=== PATIENT | male | born 1960 | race Caucasian/White ===

== ENCOUNTER 2020-06-16 09:00 | Outpatient (REF) | payer OTHER, SELFPAY ==
[2020-06-16 11:38] LABS: Hemoglobin 14.1 g/dl (14.0-18.0); Mean Corpuscular HGB Conc 33.6 g/dl (31.0-36.0); Mean Corpuscular Hemoglobin 30.8 pg (27.0-33.0); Mean Corpuscular Volume 91.7 fL (80-98); Mean Platelet Volume 10.6 fL (9.4-12.4); Platelet Count 258 X10*3/uL (160-400); Red Blood Count 4.58 X10*6/uL (4.60-5.80); Red Cell Distribution Width 13.2 % (11.0-16.0); White Blood Count 4.9 X10*3/uL (4.8-10.8)
[2020-06-16 11:50] LABS: Alanine Aminotransferase 24 U/L (0-40); Albumin Level 4.3 g/dL (3.5-5.0); Alkaline Phosphatase 52 U/L (39-117); Anion Gap 11 (12-20); Aspartate Amino Transferase 20 U/L (5-37); Bilirubin Total 0.8 mg/dL (0.0-1.0); Blood Urea Nitrogen 18 mg/dL (9-16); Calcium 8.9 mg/dL (8.4-10.2); Carbon Dioxide 28 mmol/L (22-29); Chloride 102 mmol/L (96-108); Cholesterol 197 mg/dL; Estimated Glomerular Filt Rate > 60; Glucose Fasting 93 mg/dL (60-99); HDL Cholesterol 32 mg/dL; LDL Cholesterol Calculated 146 mg/dl; Potassium 4.2 mmol/L (3.3-5.1); Sodium 137 mmol/L (135-145); Total Protein 7.2 g/dL (6.5-8.0); Triglycerides 97 mg/dL
== END 2020-06-16 09:01 | disposition home or self-care (01) ==
LOC: HO.MANLDS 09:00
PROVIDERS: PCP Internal Medicine; Visit Provider Physician Assistant
DX: Z00.00 Encounter for general adult medical examination without abnormal findings (principal)
CPT/HCPCS: 36415; 80053; 80061; 85027

== ENCOUNTER 2022-11-28 08:39 | Outpatient (REF) | payer OTHER, SELFPAY ==
[2022-11-28 12:56] LABS: MANUAL DIFF FLAG NO
[2022-11-28 13:06] LABS: Basophils Percent Auto 0.6 % (0-2); Eosinophils Absolute Auto 0.1 X10*3/uL (0.0-0.4); Eosinophils Percent Auto 1.5 % (0-4); Hematocrit 41.8 % (42.0-52.0); Hemoglobin 14.3 g/dl (14.0-18.0); Lymphocytes Absolute Auto 1.7 X10*3/uL (1.2-4.9); Lymphocytes Percent Auto 35.9 % (20-40); Mean Corpuscular HGB Conc 34.2 g/dl (31.0-36.0); Mean Corpuscular Hemoglobin 31.1 pg (27.0-33.0); Mean Corpuscular Volume 90.9 fL (80.0-98.0); Mean Platelet Volume 10.3 fL (9.4-12.4); Monocytes Absolute Auto 0.6 X10*3/uL (0.1-1.2); Monocytes Percent Auto 11.6 % (2-11); Neutrophils Absolute Auto 2.4 x10*3/uL (2.0-8.3); Neutrophils Percent Auto 50.4 % (45-73); Platelet Count 307 X10*3/uL (160-400); Red Cell Distribution Width 13.3 % (11.0-16.0); White Blood Count 4.7 X10*3/uL (4.8-10.8)
[2022-11-28 13:21] LABS: Estimated Average Glucose 117 mg/dL; Hemoglobin A1c % 5.7 % (<6.0)
[2022-11-28 13:46] LABS: Alanine Aminotransferase 40 U/L (0-40); Albumin Level 4.1 g/dL (3.5-5.0); Alkaline Phosphatase 49 U/L (39-117); Anion Gap 13 (12-20); Aspartate Amino Transferase 28 U/L (5-37); Bilirubin Total 0.4 mg/dL (0.0-1.0); Blood Urea Nitrogen 19 mg/dL (9-16); Calcium 8.9 mg/dL (8.4-10.2); Carbon Dioxide 26 mmol/L (22-29); Chloride 103 mmol/L (96-108); Cholesterol 182 mg/dL (<200); Estimated Glomerular Filt Rate > 60; Glucose Random 88 mg/dL (60-115); HDL Cholesterol 31 mg/dL (>40); LDL Cholesterol Calculated 115 mg/dL (<100); Sodium 138 mmol/L (135-145); Total Protein 7.7 g/dL (6.5-8.0); Triglycerides 183 mg/dL (<150)
== END 2022-11-28 08:40 | disposition home or self-care (01) ==
LOC: HO.MANLDS 08:39
PROVIDERS: Visit Provider Internal Medicine
DX: E78.00 Pure hypercholesterolemia, unspecified (principal); R73.01 Impaired fasting glucose
CPT/HCPCS: 36415; 80053; 80061; 83036; 85025

== ENCOUNTER 2024-07-30 11:17 | Outpatient (REF) | payer OTHER, SELFPAY ==
[2024-07-30 13:10] LABS: MANUAL DIFF FLAG NO
--- OUTSIDE RECORDS SUMMARY | 2024-07-30 13:17 | XMS_ITS | Data Portability ---
Author Organization [facility] Address [address] [place] [address] Assessment Encounter Date Assessment Date Assessment LastModified by Organization Details LastModified Time 12/11/2020 12/11/2020 [id number] [place] [id number] (COMMUNITY [employer] WORK[employer]) : MDM LOW MUST MEET 2 OF 3 ELEMENTS: PROBLEMS, DATA OR RISK ELEMENT 1: PROBLEMS ADDRESSED (LOW): 2 OR MORE SELF-LIMITED OR MINOR PROBLEMS OR 1 STABLE CHRONIC ILLNESS OR 1 ACUTE UNCOMPLICATED ILLNESS OR INJURY ELEMENT 2: DATA TO BE REVISED AND ANALYZED (LOW) MUST MEET 1 OF 2 CATEGORIES: CATEGORY 1. REVIEW OF PRIOR EXTERNAL NOTES/RESULTS, ORDERING OF TEST(S) CATEGORY 2. ASSESSMENT REQUIRING INDEPENDENT HISTORIAN(S) INCLUDE WHO THE HISTORIAN IS AND RELATION TO PT AND WHY PT IS UNABLE TO GIVE COMPLETE HISTORY ELEMENT 3: RISK (LOW) RISK OF COMPLICATIONS AND/OR MORBIDITY OR MORTALITY OF PATIENT MANAGEMENT PROVIDER MUST THOROUGHLY DOCUMENT ALL OF THE ELEMENTS COVERED Not available 12/11/2020 11:35:21 01/01/2021 01/01/2021 [id number] [place] [id number] (COMMUNITY [employer] HE[employer] WORKER) MDM MODERATE MUST MEET 2 OUT OF 3 ELEMENTS: PROBLEMS, DATA OR RISK ELEMENT 1: PROBLEMS ADDRESSED 1 OR MORE CHRONIC ILLNESS WITH EXACERBATION OR 2 OR MORE STABLE CHRONIC ILLNESSES OR 1 UNDIAGNOSED NEW PROBLEM OR 1 ACUTE ILLNESS W/SYMPTOMS OR 1 ACUTE COMPLICATED INJURY ELEMENT 2: DATA MUST MEET 1 OF 3 CATEGORIES CATEGORY 1: REVIEW OF PRIOR EXTERNAL NOTES, REVIEW OF RESULTS, ORDERING OF EACH TEST, ASSESSMENT REQUIRING INDEPENDENT HISTORIAN OR CATEGORY 2: INDEPENDENT INTERPRETATION OF TESTS BY ANOTHER PHYSICIAN OR SPECIALIST OR CATEGORY 3: DISCUSSION OF MGT OR TEST INTERPRETATION W/EXTERNAL PHYSICIAN OR SPECIALIST ELEMENT 3: RISK RISK OF COMPLICATIONS AND/OR MORBIDITY OR MORTALITY OF PATIENT MANAGEMENT PROVIDER MUST THOROUGHLY DOCUMENT EACH ELEMENT THAT IS COVERED Not available 01/01/2021 15:37:05 Plan of Treatment Reminders Order Date Submit Date Provider Last Modified By Organization Details Last Modified Time Details Appointments ANNUAL EXAM 2024 02:30P M DR YI Not available Not available Not available Lab HbA1c (hemoglob in A1c), blood 2022 023 [facility], [address] [place] [address], [id number], 10/25/2022 12:30:37 lipid panel, blood 2022 023 [facility], [address] [place] [address], [id number], 10/25/2022 12:30:36 CMP, serum or plasma 2022 023 [facility], [address] [place] [address], [id number], 10/25/2022 12:30:37 CBC w/ auto diff 2022 023 [facility], [address] [place] [address], [id number], 10/25/2022 12:30:36 HbA1c (hemoglob in A1c), blood 2020 021 [email or web address] 10 [facility], [address] [place] [address], [id number], 01/08/2021 08:42:26 CMP, serum or plasma 2020 021 [facility], [address] [place] [address], [id number], 01/01/2021 15:40:27 PSA, serum or plasma 2020 021 [facility], [address] [place] [address], [id number], 01/01/2021 15:40:27 Referral None recorded. Procedures None recorded. Surgeries None recorded. Imaging XR, nasal bones, 3 or more view 2023 024 [facility], [address] [place], [address], 10/10/2023 17:07:18 XR, chest, 2 view 2022 023 [email or web address] Not available 01/25/2023 08:16:56 CT, heart, w/o contrast, w/ coronary calcium score 2022 023 [email or web address] [facility], [address] [place], [address], 11/15/2022 08:10:04 Medication Orders diclofena c sodium 75 mg tablet,de layed release 2023 024 [facility] #[id number], [address], [place], [phone], 10/10/2023 11:20:18 albuterol sulfate HFA 90 mcg/actua tion aerosol inhaler 2022 024 [facility] #[id number], [address], [place], [phone], 10/10/2023 11:02:19 benzonata te 200 mg capsule 2022 024 [facility] #[id number], [address], [place], [phone], 10/10/2023 11:02:10 Benicar HCT 20 mg-12.5 mg tablet 2020 021 RUPAL Not available 01/01/2021 15:40:35 triamtere ne 37.5 mg-hydroc hlorothia zide 25 mg tablet 2020 021 [email or web address] Not available 10/25/2022 11:53:07 Patient TargetsNo targets recorded. Patient Instructions Encounter Date Encounter Id Patient Instructions Last Modified By Organization Details Last Modified Time 12/11/2020 [id number] prediabetes: car e instructions Not available 12/11/2020 11:34:40 high blood pressure: care instructions Not available 12/11/2020 11:34:41 learning about high blood pressure Not available 12/11/2020 11:34:40 10/25/2022 [id number] high blood pressure: care instructions Not available 10/25/2022 12:24:56 learning about high blood pressure Not available 10/25/2022 12:24:56 Reason for Referral None Reported. Results Created Date Observation Date Name Description Value Unit Range Abnormal Flag Note LastModifiedBy Organization Detail LastModifiedTime 09/11/1909/10/2022 XR, chest , 2 view No observ ation record ed. [facility] [address] [facility] [address], [place], [address], 09/12/2022 11:06:28 11/16/19 23 11/15/2022 CT, heart , w/o contr ast, w/ coron michelle calci um score No observ ation record ed. [facility] [address] [place], [address], 11/17/2022 21:58:46 11/22/19 23 11/21/2022 XR, chest , 2 view No observ ation record ed. [email or web address] [facility] [address] [place] [address] , [place], [address], 11/22/2022 10:11:50 01/03/20 23 01/02/2023 XR, chest , 2 view No observ ation record ed. [address], [address], 01/03/2023 08:28:41 10/10/19 24 10/10/2023 XR, nasal bones , 3 or more view No observ ation record ed. [address], [address], 10/11/2023 09:53:29 Result Notes None recorded. Problems Name Problem SNOMED Code Status Onset Date Resolution Date Notes Provider Name and Address Organization Details Recorded Time Family history of stroke 629232993 Active 2017 Not Available [facility] 2 21:18:27 Essential hypertensi on 02641677 Active 2017 Not Available [facility] 2 21:18:27 Hiatal hernia 08624248 Active 2017 Not Available [facility] 3 17:03:48 Hyperchole sterolemia 25518227 Active 2017 Not Available [facility] 2 21:18:27 Impaired fasting glycemia 015227497 Active 2017 Not Available [facility] 3 17:03:48 Diverticul ar disease 595543503 Active 2017 Not Available [facility] 3 17:03:48 Insomnia 756703702 Active 2022 Not Available [facility] 3 17:03:47 Aspiration pneumonia 710278230 Active 2022 Not Available [facility] 3 17:03:48 Gastro-eso phageal reflux disease with esophagiti s 748197553 Active 2022 Not Available [facility] 3 17:03:48 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 Not Available [facility] 3 17:03:48 Cough 01843598 Active 2022 BONNIE MULLIGAN [address] [place] [address], [address], [facility] 3 11:42:15 Pneumonia 942367685 Active 2022 BONNIE MULLIGAN [address] [place] [address], [address], [facility] 3 08:31:36 Diverticul itis of sigmoid colon 425318653 Active 2022 Doni Yi DO [address] [place], [address], [facility] 3 10:02:14 Pain of nose 310023257 Active 2023 BONNIE MULLIGAN [address] [place], [address], [facility] 4 11:14:21 Rhinitis 56318429 Active 2023 BONNIE MULLIGAN [address] [place] [address], [address], [facility] 4 11:15:40 Notes:Some problems listed i n Document: #[id number] could not be added to this patient's chart. Please review this document and add these problems to the patient's chart manually as needed. Problem Notes None recorded. Procedures Surgical History Date Name Laterality Status Provider Name and Address Organization Details Recorded Time Colonoscopy completed Doni Yi DO [address] [place] [address], [phone], [facility] 03/30/2021 14:24:55 Imaging Results Imaging Date Name Status [facility]Modified by [facility] Details LastModified Time 09/10/2022 XR, chest, 2 view completed [address], [place], [address], 09/12/2022 11:06:28 11/15/2022 CT, heart, w/o contrast, w/ coronary calcium score completed [facility] [address] [place], [address], 11/17/2022 21:58:46 11/21/2022 XR, chest, 2 view completed [email or web address] [place] [address] - Outpatient Radiology [address] [place] [address] [place], [address], 11/22/2022 10:11:50 01/02/2023 XR, chest, 2 view completed [facility] [address] [place], [address], 01/03/2023 08:28:41 10/10/2023 XR, nasal bones, 3 or more view completed [email or web address] [facility] [address] [facility], [place], [address], 10/11/2023 09:53:29 Procedure Notes None recorded. Medical Equipment None Reported. Allergies No known drug allergies Medications Name Sig Start Date Stop Date Status Note LastModified by Organization Details LastModified Time amoxicillin 500 mg capsule TAKE 1 CAPSULE BY MOUTH THREE TIMES DAILY 10/09 completed Not Available Not Available Not Available doxycycline hyclate 100 mg capsule Take 1 capsule twice a day by oral route for 5 days. 10/09 completed Not Available Not Available Not Available benzonatate 200 mg capsule TAKE 1 CAPSULE BY MOUTH THREE TIMES DAILY FOR 14 DAYS NEEDED 10/09 completed Not Available Not Available Not Available metoprolol succinate ER 50 mg tablet,exte nded release 24 hr active Not Available Not Available Not Available hydrocodone 5 mg-acetamin ophen 325 mg tablet TAKE 1 TABLET BY MOUTH EVERY 6 HOURS NEEDED FOR PAIN 10/09 completed Not Available Not Available Not Available metoprolol succinate ER 200 mg tablet,exte nded release 24 hr TAKE 1 TABLET BY MOUTH EVERY DAY 01/11 completed Not Available Not Available Not Available famotidine 40 mg tablet TAKE 2 TABLETS BY MOUTH DAILY AT BEDTIME active Not Available Not Available No t Available metoprolol succinate ER 100 mg tablet,exte nded release 24 hr TAKE 1 TABLET BY MOUTH EVERY DAY. TAKE CONSISTEN TLY WITH MEALS OR ON AN EMPTY STOMCH 2021 active Not Available Not Available Not Avai lable alclometaso ne 0.05 % topical cream Apply 1 applicati on 3 times a week by topical route for 15 days. 10/09 completed Not Available Not Available Not Available Zyrtec 10 mg tablet Take 1 tablet every day by oral route. active Not Available Not Available No t Available metronidazo le 500 mg tablet 08/22 completed Not Available Not Available Not Available amlodipine 5 mg tablet take 1 tablet by mouth once daily 09/08 completed Not Available Not Available Not Available ciprofloxac in 500 mg tablet 08/22 completed Not Available Not Available Not Available triamcinolo ne acetonide 0.1 % topical cream APPLY TWICE DAILY TO THE AFFECTED AREA TO RASH ON LEGS FOR 2 WEEKS ON THEN 1 WEEK OFF NEEDED active Not Available Not Available No t Available ondansetron 8 mg disintegrat ing tablet PLACE 1 TABLET ON THE TOUNGE TWICE DAILY 10/09 completed Not Available Not Available Not Available desonide 0.05 % topical ointment APPLY TOPICALLY TO FACE DAILY NEEDED active Not Available Not Available No t Available imiquimod 5 % topical cream packet active Not Available Not Available Not Available meclizine 25 mg tablet TAKE 1 TABLET BY MOUTH THREE TIMES DAILY NEEDED active Not Available Not Available No t Available pantoprazol e 40 mg tablet,edwardo yed release TAKE 1 TABLET BY MOUTH TWICE DAILY 30 TO 60 MINUTES BEFORE FOOD active Not Available Not Available No t Available triamterene 37.5 mg-hydrochl orothiazide 25 mg tablet TAKE 1 TABLET BY MOUTH EVERY DAY 10/25 completed Not Available Not Available Not Available omeprazole 20 mg capsule,del ayed release TAKE 1 CAPSULE BY MOUTH TWICE A DAY. 09/12 completed Not Available Not Available Not Available diclofenac sodium 75 mg tablet,edwardo yed release TAKE 1 TABLET BY MOUTH TWICE DAILY FOR 14 DAYS NEEDED active Not Available Not Available No t Available codeine 10 mg-guaifene sin 100 mg/5 mL oral liquid TAKE 10 ML BY MOUTH EVERY 4 HOURS NEEDED 01/11 completed Not Available Not Available Not Available halobetasol propionate 0.05 % topical cream APPLY A THIN LAYER TO THE AFFECTED AREA(S) BY TOPICAL ROUTE ONCE DAILY DO NOT EXCEED 50 GRAMS PER WEEK OR 2 WEEKS DURATION 10/09 completed Not Available Not Available Not Available zolpidem 5 mg tablet take 1 tablet by mouth at bedtime if needed 07/29 completed Not Available Not Available Not Available metoprolol succinate ER 25 mg tablet,exte nded release 24 hr 08/22 completed Not Available Not Available Not Available alclometaso ne 0.05 % topical ointment APPLY SMALL AMOUNT TO EYELIDS DAILY FOR 1 TO 2 WEEKS ON THEN 1 TO 2 WEEKS OFF NEEDED active Not Available Not Available No t Available levofloxaci n 750 mg tablet TAKE 1 TABLET BY MOUTH EVERY DAY FOR 10 DAYS 10/09 completed Not Available Not Available Not Available zolpidem 10 mg tablet TAKE 1 TABLET BY MOUTH EVERY DAY active Not Available Not Available No t Available methylpredn isolone 4 mg tablets in a dose pack FOLLOW PACKAGE DIRECTION S 01/11 completed Not Available Not Available Not Available albuterol sulfate HFA 90 mcg/actuati on aerosol inhaler INHALE 2 PUFFS BY MOUTH EVERY 4 HOURS 10/09 completed Not Available Not Available Not Available SSD 1 % topical cream APPLY A 1/16 INCH (1.5 MM) THICK LAYER TO affected AREA BY TOPICALRO [place] 2 TIMES PER DAY 10/09 completed Not Available Not Available Not Available ketoconazol e 2 % topical cream APPLY TOPICALLY TO THE AFFECTED AREA TWICE DAILY FOR SCALE ON FACE active Not Available Not Available No t Available doxycycline hyclate 100 mg tablet 08/22 completed Not Available Not Available Not Available naproxen 500 mg tablet TAKE 1 TABLET BY MOUTH TWICE DAILY WITH FOOD 10/09 completed Not Available Not Available Not Available doxazosin 2 mg tablet 1 qd active Not Available Not Available No t Available amoxicillin 875 mg-potassiu m clavulanate 125 mg tablet TAKE 1 TABLET BY MOUTH EVERY 12 HOURS FOR 10 DAYS 10/09 completed Not Available Not Available Not Available oxycodone 5 mg tablet 10/09 completed Not Available Not Available Not Available olmesartan 20 mg-hydrochl orothiazide 12.5 mg tablet TAKE 1 TABLET BY MOUTH 1 TIME EACH DAY active Not Available Not Available No t Available olmesartan 40 mg-hydrochl orothiazide 25 mg tablet 08/22 completed Not Available Not Available Not Available sildenafil (pulmonary hypertensio n) 20 mg tablet Take 3 tablets by mouth one hour prior to sex as needed. 10/25 completed Not Available Not Available Not Available chlorhexidi ne gluconate 0.12 % mouthwash SWISH AND SPIT 10 ML BY MOUTH THREE TIMES DAILY 10/09 completed Not Available Not Available Not Available Aspir-81 Take one tablet once a day active Not Available Not Available No t Available Afluria [id number] (PF) 45 mcg(15 mcg x 3)/0.5 mL intramuscul ar syringe 08/22 completed Not Available Not Available Not Available Fluarix Quad (PF) 60 mcg (15 mcg x 4)/0.5 mL IM syringe 06/26 completed Not Available Not Available Not Available Flucelvax Quad (PF) 60 mcg (15 mcg x 4)/0.5 mL IM syringe 06/26 completed Not Available Not Available Not Available COVID-19 test specimen collection TEST DIRECTED 07/28 completed Not Available Not Available Not Available Fluarix Quad (PF) 60 mcg (15 mcg x 4)/0.5 mL IM syringe 06/26 completed Not Available Not Available Not Available Mounjaro 7.5 mg/0.5 mL subcutaneou s pen injector INJECT 7.5MG SUBCUTANE OUSLY WEEKLY THEN DIRECTED 10/09 completed Not Available Not Available Not Available Mounjaro 5 mg/0.5 mL subcutaneou s pen injector INJECT 5MG SUBCUTANE OUSLY WEEKLY 10/09 completed Not Available Not Available Not Available Mounjaro 15 mg/0.5 mL subcutaneou s pen injector ADMINISTE R 15 MG UNDER THE SKIN WEEKLY FOR 4 WEEKS DIRECTED active Not Available Not Available No t Available Mounjaro 10 mg/0.5 mL subcutaneou s pen injector ADMINISTE R 10 MG UNDER THE SKIN WEEKLY 10/09 completed Not Available Not Available Not Available Mounjaro 12.5 mg/0.5 mL subcutaneou s pen injector ADMINISTE R 12.5 MG UNDER THE SKIN WEEKLY active Not Available Not Available No t Available Mounjaro 2.5 mg/0.5 mL subcutaneou s pen injector 10/09 completed Not Available Not Available Not Available Vitals Date Recorded Body height Body mass index (BMI) Body weight Oxygen saturation Oxygen saturation in Arterial blood by Pulse oximetry Heart rate Systolic blood pressure Diastolic blood pressure Provider Name and Address Organization Details Last Updated DateTime 1 170.82 cm 33.2 kg/m2 20301.2 5 g 96 % 96 % 70 /min 200 mm[Hg] 120 mm[Hg] [facility] 1 11:06:36 Date Recorded Body height Body mass index (BMI) Body weight Heart rate Oxygen saturation Oxygen saturation in Arterial blood by Pulse oximetry Systolic blood pressure Diastolic blood pressure Provider Name and Address Organization Details Last Updated DateTime 3 170.18 cm 34.5 kg/m2 73401.3 2 g 60 /min 96 % 96 % 126 mm[Hg] 60 mm[Hg] Yudi Lee [facility] 3 11:54:32 Date Recorded Systolic blood pressure Diastolic blood pressure Provider Name and Address Organization Details Last Updated DateTime 10/25/2022 128 mm[Hg] 82 mm[Hg] Doni CobosLinda Yi, DO [address] [facility], [place], [address], [facility] 10/25/2022 12:19:23 Date Recorded Body height Body mass index (BMI) Body weight Heart rate Oxygen saturation Oxygen saturation in Arterial blood by Pulse oximetry Systolic blood pressure Diastolic blood pressure Provider Name and Address Organization Details Last Updated DateTime 3 170.18 cm 34 kg/m2 01008.8 3 g 66 /min 95 % 95 % 118 mm[Hg] 64 mm[Hg] Kathy Patito [facility] 3 09:39:30 Date Recorded Body height Body mass index (BMI) Body weight Heart rate Oxygen saturation Oxygen saturation in Arterial blood by Pulse oximetry Systolic blood pressure Diastolic blood pressure Provider Name and Address Organization Details Last Updated DateTime 4 168.91 cm 32.6 kg/m2 45826.4 4 g 88 /min 98 % 98 % 124 mm[Hg] 72 mm[Hg] Dmitry Urbinain [facility] 4 11:05:36 Social History Question Answer Notes LastModified by Organizat ion Details LastModified Time Tobacco Smoking Status Never Smoker Not Available [facility] 02/04/2020 03:36:24 What Was The Date Of Your Most Recent Tobacco Screening? 10/10/2023 [email or web address] Information not available 10/10/2023 Do You Or Have You Ever Used Any Other Forms Of Tobacco Or Nicotine? No [email or web address] Information not available 10/25/2022 Sex: Unknown Functional Status None recorded. Mental Status None recorded. Family History Nothing Reported. Medical History No medical history recorded. Immunizations Vaccine Type Date Status Note Provider Nam e and Address Organization Details Recorded Time COVID-19, mRNA, LNP-S, PF, 30 mcg/0.3 mL dose 1 completed Not Available [facility] 09/29/2021 21:18:28 COVID-19, mRNA, LNP-S, PF, 30 mcg/0.3 mL dose 1 completed Not Available [facility] 09/29/2021 21:18:28 Influenza, split virus, quadrivalent, preservative 8 completed Not Available [facility] 09/29/2021 21:18:28 Influenza, split virus, quadrivalent, preservative 9 completed Not Available [facility] 09/29/2021 21:18:28 Influenza, split virus, quadrivalent, preservative 0 completed Not Available [facility] 09/29/2021 21:18:28 Past Encounters Encounter ID Performer Location Encounter Start Date Encounter Closed Date Diagnosis/Indication Diagnosis SNOMED-CT Code Diagnosis ICD10 Code Diagnosis Note [id number] July JYOTI Shaw [facility] [address] [facility],[place] [address] 08/22/2017 10:08:34 08/22/2017 11:11:43 Edema of lower extremity 624812618 R60.0 will d/c amlodipine low sodium getting up and walking around to avoid stasis elevated legs if swollen vascular consult if swelling persists after amlodipine is d/c'd Impaired f asting glycemia 322763795 R73.01 Essential hypertension 28053330 I10 f/u in 1 month for BP recheck will have to add new med if BP is elevated Skin lesion 98630144 L98 .9 has plan to see derm in the near future. recommend having derm check out wound on left العلي especially if silvadene fails [id number] Doni Yi DO [facility] [address] [facility],[place] [address] 09/08/2017 13:23:03 09/08/2017 14:00:19 Diverticular disease 746139124 K57.90 stable no major issues Essential hypertension 77315899 I10 doing good overall stable off amlodipine edema is gone Edema of l ower extremity 128577741 R60.0 now stable off amlodipine no need for further tx except must stand and walk on long airline flights Eczema 77278447 L30.9 will tx with halobeta [id number] Doni Yi [facility] [address] [facility],[place] [address] 06/24/2019 15:17:41 06/24/2019 16:18:32 Adult health examination 101950553 Z00.01 Active or passive immunization 058236649 Z23 Rupture of rotator cuff of right shoulder 6916845505 8400183 M75.101 strong suspicion he has a full tear of the rotator [id number] BONNIE MULLIGAN [facility] [address] [facility],[place] [address] 05/01/2020 12:08:20 05/01/2020 15:08:35 Vertigo 603259514 R42 will start patient on meclizine and see if improvemen t of symptoms if no resolution and worsening will either call or go to the ER for treatment Nausea and vomiting 1693 2000 R11.2 will also start patient on zofran for vomiting [id number] Doni Yi [facility] [address] [facility],[place] [address] 05/04/2020 09:33:37 05/04/2020 14:11:32 Benign paroxysmal positional vertigo 031738042 H81.11 long detailed discussion re the manuveurs and he also is mya to follow up with ENT [id number] BONNIE MULLIGAN [facility] [address] [facility],[place] [address] 07/28/2020 11:23:15 07/28/2020 12:19:38 Active or passive immunization 519478359 Z23 advised [facility] th examination 434798152 Z00.00 the patient is doing well BP is great seeing specialist for his ears did flush his ears today due to impacted cerumen [id number] Doni Yi [facility] [address] [facility],[place] [address] 12/11/2020 10:56:17 12/11/2020 12:04:33 Essential hypertension 90040356 I10 bp is completely out of controlwe will add triam/hctz to regimen amlodipine in past did NOT help his bp Impaired f asting glycemia 438943963 R73.01 doing ok had lost 35lbs but gained back 25lbs [id number] Doni Yi DO [facility] [address] [facility],[place] [address] 01/01/2021 08:17:54 01/01/2021 15:51:06 Essential hypertension 99395671 I10 bp is still out of control and although better is still elevated we will stop the dyazide and re start the benicar hct Impaired f asting glycemia 236471964 R73.01 doing ok had lost 35lbs but gained back 25lbs as noted Hypercholesterolemia 136 17702 E78.00 will rechk in spring [id number] Doni Yi DO [facility] [address] [facility],[place] [address] 10/25/2022 11:48:34 10/25/2022 15:31:30 Active or passive immunization 860498569 Z23 Adult [facility] th examination 139906976 Z00.00 Gastro-eso phageal reflux disease with esophagitis 918642562 K21.00 followed by GI Hypercholesterolemia 136 05314 E78.00 will rechk in spring Essential hypertension [id number] I10 bp is still out of control and although better is still elevated we will stop the dyazide and re start the benicar hct Impaired f asting glycemia [id number] R73.01 gained some wgt back will chk a1c [id number] BONNIE MULLIGAN [facility] [address] [facility] [address],[place] [address] 01/11/2023 09:30:16 01/11/2023 11:37:16 Pneumonia [id number] J18.8 will recheck [id number] BONNIE MULLIGAN [facility] [address] [facility] [address],[place] [address] 10/10/2023 10:52:43 10/10/2023 13:36:25 Depression screening [id number] Z13.31 negative Pain of nose [id number] J 34.89 will set up with XRstart anti-infla mmatory Rhinitis [id number] J00 does have several environmen lesa allergies Health Concerns Section Related Observation LastModified by Organization Detai ls LastModified Time None Recorded Concern Status LastModified by Organization Details LastModified Time None Recorded Advance Directives Directive None Recorded Payers Encounter Date Sequence Insurance Name Policy Number Policy Burgess Covered Member ID Burgess Member ID Guarantor Name 12/11/2020 1 [id number] Artie Stinson [id number] Artie Stinson 01/01/2021 1 UMR [id number] Artie Stinson [id number] Artie Stinson 10/25/2022 1 UMR [id number] Artie Stinson [id number] Artie Stinson 01/11/2023 1 UMR [id number] Artie Stisnon [id number] Artie Stinson 10/10/2023 1 UMR [id number] Artie Stinson [id number] Artie Stinson Notes Date Note Type Note Provider Name a nd Address Organization Details Recorded Time 1 text/html Hypertension F/UReported bypatient.Medications :taking medications as directed; no side effects from medication Lifestyle:regular exercise; limiting/avoiding salt; compliant with low salt diet Associated Symptoms:no dizziness; no chest pain; no shortness of breath; no palpitations; no edema; no calf pain with exertion;lightheadedn ess;headache here for rechk of his bp found recently bp has been very highthis is new and asymptomaticwas exposed to covid but has not caught itrelates he is exercising with bike twice a weekno cp no sobhe has been getting headaches in the am does take allergy med daily Doni Yi DO [address] [place], [address], [facility] 12/11/2020 11:36:44 1 text/html patient is evaluated via tele/video assessment per patient consentduring current pandemichas been taking bp and on avg is 150/90's this is overall better Doni Yi DO [address] [place], [address], [facility] 01/01/2021 15:43:37 3 text/html Annual WellnessReported bypatient.Diet and Nutrition:healthy diet Fracture Risk:no history of fractures; no recent explained fracture; no sudden unexplained fractures; no previous musculoskeletal injuries Physical Activity:exercises on a regular basis; recent increase in physical activity; good physical condition Additional Lifestyle Factors:no tobacco use; no alcohol intake; stopped drinking alcohol Depression Risk:never feels sad, empty, or tearful; no loss of interest in activities; no significant changes in weight; no sleep disturbances or insomnia; no agitation; no loss of energy; no feelings of worthlessness or guilt; no thoughts of suicide; no history of depression; no history of mood disorders Hearing:no loss of hearing Vision:no vision problems still dealing with terrible gerd follows Karmen also taking his meds for bphas been checking bp at home running 130s/80s Doni Yi DO [address] [place], [address], [facility] 10/25/2022 12:29:04 3 text/html f/u pneumonia the patient is here for f/u for his pneumoniawill need another CXR in 3 weeks, when he comes back from his work trip will have him re-do itwill set him up with inhaler and cough perlesalready taking ASA which was advised for his long drive knows to avoid strenuous activitycont with fluids and use inhaler as neededrest when needed patient will fu after he returns from work juni reschedule his upcoming surgery as well BONNIE MULLIGAN [address] [place], [address], [facility] 01/11/2023 10:15:46 4 text/html c/o nasal bridge pain did recently just had an implant about 3 mos agothe patient could be suffering from an abscess or dental infection causing the swellingthe pain started about two to three weeks ago then the bridge of the nose started to swell and hurt, significant pain with palpitation and wearing his glasses possible dental vs sinus infection?occult fracture though no mechanism of injury or trauma to the facial bones makes it less likely no new allergies to medicationsdoes have seasonal allergies agreed to XRwill start on diclofenac, if he does have a dental infection will most likely need long course of amox vs clindamycin vs a sinus infection amox, z cayetano or cipro depending on extent BONNIE MULLIGAN [address] [place], [address], [facility] 10/10/2023 11:26:53
--- OUTSIDE RECORDS SUMMARY | 2024-07-30 13:17 | XMS_ITS | Clinical Summary ---
Author Organization [facility], Address [address] [facility] [address] [place] [address] Phone Care Team Providers Care Development Professional Name Role Phone Doni Nichole DO Primary Care Provider [phone] Allergies No known active allergies Medications alclomethasone (ACLOVATE) 0.05 % cream Apply topically 2 (two) times a day Active aspirin (ST ALYSHA) 81 MG EC tablet Take 81 mg by mouth 1 (one) time each day Active halobetasol (ULTRAVATE) 0.05 % cream Apply topically 2 (two) times a day Active meclizine (ANTIVERT) 25 MG tablet Take 25 mg by mouth 3 (three) times a day if needed for dizziness Active zolpidem (AMBIEN) 5 MG tablet Take 5 mg by mouth at night if needed for sleep Active cetirizine (ZyrTEC ALLERGY) 10 MG tablet Take 10 mg by mouth 1 (one) time each day Active pantoprazole (PROTONIX) 40 MG EC tablet TAKE 1 TABLET BY MOUTH TWICE DAILY 30 TO 60 MINUTES BEFORE FOOD 2 Active famotidine (PEPCID) 40 MG tablet Take 40 mg by mouth at bed time at bedtime 3 Active doxazosin (Cardura) 2 MG tablet Take 1 tablet (2 mg total) by mouth every night 90 tablet 3 3 Active metoprolol succinate XL (TOPROL XL) 50 MG 24 hr tablet Take 1 tablet (50 mg total) by mouth in the morning and 1 tablet (50 mg total) at noon and 1 tablet (50 mg total) in the evening. Do not crush or chew.. 270 tablet 3 4 09/19/19 25 Active olmesartan-hydr oCHLOROthiazide (BENICAR HCT) 20-12.5 MG per tablet Take 1 tablet by mouth 1 (one) time each day 90 tablet 3 4 Active Mounjaro 15 MG/0.5ML solution pen-injector ADMINISTER 15 MG UNDER THE SKIN WEEKLY FOR 4 WEEKS DIRECTED 4 Active Active Problems Problem Noted Date Diagnosed Date Essential hypertension 06/21/2017 Hypercholesterolemia 06/21/2017 Family history of stroke 06/21/2017 Immunizations Immunization Administration Dates Next Due Influenza (IM) Preservative Free 12/13/2016,01/02,11/19/2014 Influenza, Quadrivalent, Preservative Free 12/04,03/03/2018 Influenza, Quadrivalent, With Preservative 12/04 Pfizer SARS-COV-2 07/31/2020,07/10/2020 Social History Tobacco Use Types Packs/Day Years Used Date Smoking Tobacco: Never Alcohol Use Standard Drinks/Week Comments Yes 3 (1 standard drink = 0.6 oz pur e alcohol) Sex and Gender Information Value Date Recorded Sex Assigned at Not on file Legal Sex Male 9:13 AM EDT Gender Identity Not on file Sexual Orientation Not on file Plan of Treatment Upcoming Encounters Date Type Department Care Team (Late st Contact Info) Description 01/03/2025 11:00 AM EDT Office Visit [facility] [place], [address] [address] Ahsvin Romero MD [address] [place] [address] [place] [phone] Health Maintenance Due Date Last Done Comments Colorectal Cancer Screening: Annual FOBT 2010 Colorectal Cancer Screening: Colonoscopy 2010 Colorectal Cancer Screening: Sigmoidoscopy 2010 Pneumococcal Vaccine: 50+ Years (1 of 1 - PCV) 2011 Influenza Vaccine (Season Ended) 2024 12/05/2019, 12/04/2018, 03/03/2018, Additional history exists Hepatitis B Vaccine Aged Out No longe r eligible based on patient's age to complete this topic Insurance [facility] [place] [address] Care Teams Development Professional Relationship Specialty Start Date End Date Doni Nichole DO [address] [facility],[place] [phone] PCP - General Internal Medicine 01/29/21
--- OUTSIDE RECORDS SUMMARY | 2024-07-30 13:17 | XMS_ITS | Encounter Summary ---
Author Organization [facility], Address [address] [place] [address] Phone Care Team Providers Care Boat Crew Deck Hand Name Role Phone Doni Nichole DO Primary Care Provider [phone] Reason for Visit * Reason Comments Med Refill Encounter Details Date Type Department Care Team (Late st Contact Info) Description 06/02/2021 Refill [facility] - [address] [place] [phone] Ashvin Romero MD [address] [place] [address] [place] [address] Social History Tobacco Use Types Packs/Day Years Used Date Smoking Tobacco: Never Alcohol Use Standard Drinks/Week Comments Yes 3 (1 standard drink = 0.6 oz pur e alcohol) Sex and Gender Information Value Date Recorded Sex Assigned at Not on file Legal Sex Male 9:13 AM EDT Gender Identity Not on file Sexual Orientation Not on file documented as of this encounter Plan of Treatment Upcoming Encounters Date Type Department Care Team (Late st Contact Info) Description 01/03/2025 11:00 AM EDT Office Visit [facility] - [address] [place] [phone] Ashvin Romero MD [address] [place] [address] [place] [address] documented as of this encounter Visit Diagnoses Not on filedocumented in this encounter Care Teams Boat Crew Deck Hand Relationship Specialty Start Date End Date Dionisio DO Doni [address] [place] [phone] PCP - General Internal Medicine 01/29/21 documented as of this encounter
--- OUTSIDE RECORDS SUMMARY | 2024-07-30 13:17 | XMS_ITS | Encounter Summary ---
Author Organization [facility] [place], Address [address] [place] [address] Phone Care Team Providers Care Nipping Machine Operator Name Role Phone Doni Nichole DO Primary Care Provider [phone] Encounter Details Date Type Department Care Team (Late st Contact Info) Description 12/08/2022 Documentation Only [facility] [address] [place] [address] Ashvin Romero MD [address] [place] [address] [place] [address] Social History Tobacco Use Types [...] Visit [facility] [address] [place] [address] Ashvin Romero MD [address] [place] [address] [place] [address] documented as of this encounter Visit Diagnoses Not on filedocumented in this encounter Care Teams Nipping Machine Operator Relationship Specialty Start Date End Date Dionisio DO Doni [address] [facility] [place] [phone] PCP - General Internal Medicine 01/29/21 documented as of this encounter
[2024-07-30 13:22] LABS: Basophils Percent Auto 0.7 % (0-2); Eosinophils Percent Auto 0.5 % (0-4); Hematocrit 40.7 % (42.0-52.0); Hemoglobin 13.9 g/dl (14.0-18.0); Imm Gran Abs Auto 0.01 X10*3/uL (0.00-0.03); Imm Gran Pct Auto 0.2 % (0.0-0.4); Lymphocytes Absolute Auto 1.5 X10*3/uL (1.2-4.9); Lymphocytes Percent Auto 34.8 % (20-40); Mean Corpuscular HGB Conc 34.2 g/dl (31.0-36.0); Mean Corpuscular Hemoglobin 31.3 pg (27.0-33.0); Mean Corpuscular Volume 91.7 fL (80.0-98.0); Mean Platelet Volume 9.6 fL (9.4-12.4); Monocytes Absolute Auto 0.6 X10*3/uL (0.1-1.2); Monocytes Percent Auto 14.4 % (2-11); Neutrophils Absolute Auto 2.1 x10*3/uL (2.0-8.3); Neutrophils Percent Auto 49.4 % (45-73); Platelet Count 281 X10*3/uL (160-400); Red Blood Count 4.44 X10*6/uL (4.60-5.80); Red Cell Distribution Width 13.8 % (11.0-16.0); White Blood Count 4.2 X10*3/uL (4.8-10.8)
[2024-07-30 13:34] LABS: Alanine Aminotransferase 45 U/L (0-40); Albumin Level 4.2 g/dL (3.5-5.0); Alkaline Phosphatase 49 U/L (39-117); Anion Gap 11 (12-20); Aspartate Amino Transferase 37 U/L (5-37); Bilirubin Total 0.5 mg/dL (0.0-1.0); Blood Urea Nitrogen 16 mg/dL (9-16); Carbon Dioxide 24 mmol/L (22-29); Chloride 106 mmol/L (96-108); Cholesterol 198 mg/dL (<200); Estimated Glomerular Filt Rate > 60; Glucose Random 96 mg/dL (60-115); HDL Cholesterol 35 mg/dL (>40); LDL Cholesterol Calculated 144 mg/dL (<100); Potassium 3.8 mmol/L (3.3-5.1); Sodium 137 mmol/L (135-145); Total Protein 7.7 g/dL (6.5-8.0); Triglycerides 99 mg/dL (<150)
[2024-07-30 13:40] LABS: Estimated Average Glucose 105 mg/dL; Hemoglobin A1c % 5.3 % (<6.0); Total Hemoglobin (HGBA1C) 3620.8439 umol/L
[2024-07-30 13:50] LABS: Prostate Specific Antigen 1.21 ng/mL (<0.05-4.0)
== END 2024-07-30 11:18 | disposition home or self-care (01) ==
LOC: HO.MANLDS 11:17
PROVIDERS: Visit Provider Internal Medicine
DX: Z12.5 Encounter for screening for malignant neoplasm of prostate (principal); I10 Essential (primary) hypertension; E78.00 Pure hypercholesterolemia, unspecified; R73.01 Impaired fasting glucose
CPT/HCPCS: 36415; 80053; 80061; 83036; 84153; 85025